=== PATIENT | female | born 1975 | race Two or more races ===

== ENCOUNTER 2019-06-13 19:05 | Emergency (ER) | payer BC, OTHER ==
[~2019-06-13] VITALS: Ht 167.6 cm; Wt 71.5 kg
[2019-06-13 19:07] VITALS: BP 124/88
--- NOTE | 2019-06-13 19:23 | NUR ---
PT HERE WITH C/O LAC AND "MISSING CHUNK" OF RIGHT THUMB. BLEEDING UNCONTROLLED WITHOUT PRESSURE, PT STABLE.
[2019-06-13] MEDS ORDERED: MICROFIBRILLAR COLLAGEN 1 GM TP ONE (19:24)
[2019-06-13] MEDS ORDERED: BUPIVACAINE 0.25% INFIL ONE (19:30)
[2019-06-13] MEDS ORDERED: LIDOCAINE-MPF 1%, 5ML INFIL ONE (19:30)
[2019-06-13] MEDS ORDERED: DIPH,PERTUSS(ACELL),TET VAC/PF 0.5 ML IM-VACC ONE ×2 (19:30→19:33)
--- NOTE | 2019-06-13 19:37 | NUR ---
PT MEDICATED PER ORDERS.
--- NOTE | 2019-06-13 20:21 | NUR ---
Patient/Caregiver given discharge instructions and they have confirmed that they understand the instructions. Patient ambulatory with steady gait.
== END 2019-06-13 20:38 | disposition home or self-care (01) ==
LOC: ED 19:51
DX: S61.011A Laceration without foreign body of right thumb without damage to nail, initial encounter (principal); X58.XXXA Exposure to other specified factors, initial encounter; Z90.710 Acquired absence of both cervix and uterus; Y93.G3 Activity, cooking and baking; Y92.89 Other specified places as the place of occurrence of the external cause; Y99.8 Other external cause status
CPT/HCPCS: 64450; 90471; 90715; 99284